=== PATIENT | male | born 1990 | race Caucasian/White ===

== ENCOUNTER 2022-05-04 16:18 | Emergency (ER) | payer OTHER, SELFPAY ==
--- NOTE | ~2022-05-04 | XR_ITS ---
XR thoracic spine 3V 05/04/2022 17:11 Indication: Back pain Procedure: 5 views of the thoracic spine Comparison: No prior studies for comparison. Findings: Vertebral body heights are maintained. There is mild levoscoliosis. No acute fracture or tr aumatic malalignment. No paraspinal soft tissue abnormality. Pedicles intact. Surrounding osseous str uctures are unremarkable. Impression: 1: Mild levoscoliosis of the thoracic spine. Reviewed, dictated and finalized at location A. Impression: 1: Mild levoscoliosis of the thoracic spine.
[2022-05-04 16:19] VITALS: BP 108/65; PULSE 120; RESP 20; TEMP 37.3; O2SAT 97
--- NOTE | 2022-05-04 16:52 | ED.GENADULT ---
HPI - General Adult General Chief complaint: Back Pain/Injury Stated complaint: back pain/rash/bilat leg swelling Time Seen by Provider: 05/04/22 16:41 History of Present Illness HPI narrative: 31-year-old male presents to the emergency room for evaluation of multiple complaints. Patient states he has been experiencing left-sided mid thoracic back pain for 3 days. States pain is worse with certain movements. Also states pain is worse when he attempts to take a deep breath. Patient also complains of diffuse systemic rash that is also been present for 3 days. Patient has been taking Benadryl on occasion to alleviate the itching. Patient denies any new environmental exposures, new foods, new medications, or new detergents and soaps. Patient denies any shortness of breath or difficulty breathing. Patient denies any sensation of airway closing. Related Data Allergies Allergy/AdvReac Type Severity Reaction Status Date / Time No Known Allergies Allergy Unverified 06/04/15 12:52 Review of Systems Review of Systems: CONSTITUTIONAL: Denies fever, chills, or sweats. EYES: Denies visual changes, redness, or discharge. ENT: Denies rhinorrhea, congestion, sore throat, or otalgia. CARDIOVASCULAR: Denies chest pain, palpitations, or edema. RESPIRATORY: Denies cough or dyspnea. GASTROINTESTINAL: Denies abdominal pain, nausea, vomiting, or diarrhea. GENITOURINARY: Denies dysuria or hematuria. SKIN: Reports rash MUSCULOSKELETAL: Reports back pain NEUROLOGIC: Denies headache, numbness, dizziness, or weakness. PSYCHIATRIC: Denies anxiety or depression. PMFSH Social History Social History Smoking status: Current every day smoker Alcohol intake: current Exam Narrative: GENERAL: Well-appearing, well-nourished, no physical limitations, and in no acute distress. HEAD: Normocephalic, atraumatic. EYES: Conjunctivae normal, PERRLA and EOMI. CHEST: Clear to auscultation. No respiratory distress. No wheezes rales or rhonchi. HEART: Regular rate and rhythm. No murmur heard. Normal peripheral pulses. ABDOMEN: Soft, nontender, nondistended, normal active bowel sounds. BACK: No midline cervical/thoracic/lumbar tenderness, step-offs, bony abnormality; FROM. Tenderness over the superior aspect of the left latissimus dorsi muscle EXTREMITIES: Normal range of motion. No edema. No clubbing or cyanosis SKIN: Systemic erythematous, maculopapular rash NEURO: No focal deficits. Alert and oriented x3. MAEW. CN's II-XI intact bilaterally, normal gait PSYCH: Cooperative. Normal mood and affect. Course Vital Signs Vital signs: Vital Signs Temperature 37.3 C 05/04/22 16:19 Pulse Rate 120 H 05/04/22 16:19 Respiratory Rate 20 05/04/22 16:19 Blood Pressure 108/65 05/04/22 16:19 Pulse Oximetry 97 05/04/22 16:19 Temperature 37.3 C 05/04/22 16:19 Pulse Rate 120 H 05/04/22 16:19 Respiratory Rate 20 05/04/22 16:19 Blood Pressure 108/65 05/04/22 16:19 Pulse Oximetry 97 05/04/22 16:19 Medical Decision Making Vital Signs Vital Signs: Vital Signs Temperature 37.3 C 05/04/22 16:19 Pulse Rate 120 H 05/04/22 16:19 Respiratory Rate 20 05/04/22 16:19 Blood Pressure 108/65 05/04/22 16:19 Pulse Oximetry 97 05/04/22 16:19 Temperature 37.3 C 05/04/22 16:19 Pulse Rate 120 H 05/04/22 16:19 Respiratory Rate 20 05/04/22 16:19 Blood Pressure 108/65 05/04/22 16:19 Pulse Oximetry 97 05/04/22 16:19 Discharge Plan Discharge Clinical Impression: Acute thoracic myofascial strain, Dermatitis Patient Disposition: Home, Self-Care Condition: Stable Instructions: Antibiotic Form, Dermatitis (ED), Thoracic Back Strain (ED) Additional Instructions: Continue taking Benadryl as needed for your rash. Prescriptions: New methocarbamol 500 mg tablet 500 mg PO TID Qty: 21 0RF prednisone 20 mg tablet 60 mg PO DAILY 5 Days Qty: 15 0RF Follow-up/Referrals: Joe Ackerman,
[2022-05-04] MEDS: FAMOTIDINE 20 MG/2 ML VIAL IV PUSH (17:22)
[2022-05-04] MEDS: methocarbamoL 500 MG TABLET PO (17:22)
[2022-05-04] MEDS: methylPREDNISolone SOD SUCC 125 MG VIAL IV PUSH (17:22)
[2022-05-04] MEDS: diphenhydrAMINE HCl INJ 50 MG/ML VIAL 25 MG IV PUSH (17:22)
== END 2022-05-04 17:43 | disposition home or self-care (01) ==
PROVIDERS: Emergency Provider Nurse Practitioner Family
DX: S29.012A Strain of muscle and tendon of back wall of thorax, initial encounter (principal); L30.9 Dermatitis, unspecified; F17.200 Nicotine dependence, unspecified, uncomplicated; X58.XXXA Exposure to other specified factors, initial encounter
CPT/HCPCS: 72072; 96374; 96375; 99284; A9270; J1200; J2930

== ENCOUNTER 2022-07-31 14:54 | Outpatient (CLI) | payer SELFPAY ==
--- NOTE | ~2022-07-31 | US_ITS ---
EXAMINATION: US scrotum doppler DATE: 07/31/2022 15:25 INDICATION: SWELLING MASS AND LUMP . TECHNIQUE: Grayscale and Doppler ultrasound images of the testes were obtained. COMPARISON: None. FINDINGS: The right testis measures 4.2 x 2.2 x 3.9 cm. The left testis measures 4.0 x 2.1 x 3.5 cm. No testicular mass. There is normal vascular flow to both testes. The right epididymis is normal with normal vascular flow. The left epididymis is normal with normal vascular flow. Small right hydrocele . Small bilateral varicoceles IMPRESSION: No testicular or scrotal mass. Small right hydrocele. Small bilateral varicoceles. Reviewed, dictated and finalized at location K. [employer] IMPRESSION: No testicular or scrotal mass. Small right hydrocele. Small bilateral varicocel es.
== END 2022-07-31 14:55 ==
PROVIDERS: PCP Family Medicine; Visit Provider Family Medicine
DX: N50.89 Other specified disorders of the male genital organs (principal); N43.3 Hydrocele, unspecified
CPT/HCPCS: 76870; 93976